=== PATIENT | female | born 1990 ===

== ENCOUNTER 2025-01-23 08:57 | Inpatient (IN) | payer MEDICARE ==
[~2025-01-23] VITALS: Ht 170.2 cm; Wt 116.0 kg
[2025-01-23] MEDS ORDERED: ALBU90OI INH (13:39)
[2025-01-23] MEDS ORDERED: LORazepam 2 MG/ML 1ML Injection IM PRN (13:40)
[2025-01-23] MEDS ORDERED: Ondansetron 4 MG SoluTab MM PRN (13:40)
[2025-01-23] MEDS ORDERED: BREYNA 80-4.510.3 GM INH (13:43)
[2025-01-23] MEDS ORDERED: GABA300 (13:44)
[2025-01-23] MEDS ORDERED: GABA300 PO (13:44)
[2025-01-23] MEDS ORDERED: Aluminum Hydroxide 320MG/5ML 473 ML PO PRN (13:45)
[2025-01-23] MEDS ORDERED: LAMO100 PO (13:45)
[2025-01-23] MEDS ORDERED: Polyethylene Glycol 3350 17 gm PO PRN (13:45)
[2025-01-23] MEDS ORDERED: Ativan1 MG PO ×2 (13:48→13:55)
[2025-01-23] MEDS ORDERED: DiphenhydrAMINE HCl 50 MG/ML 1ML Vial IM PRN (13:50)
[2025-01-23] MEDS ORDERED: FLU VACC TS2025-26(6MOS UP)/PF 45 MCG/0.5 ML SYRINGE IM SCH (13:50)
[2025-01-23] MEDS ORDERED: Haloperidol Lactate Inj. 5 MG/ML Injection IM PRN (13:50)
[2025-01-23] MEDS ORDERED: MIRT30 PO (13:51)
[2025-01-23] MEDS ORDERED: PRAZ2 PO (13:52)
[2025-01-23] MEDS ORDERED: SULTRIDS PO (13:52)
[2025-01-23] MEDS ORDERED: TIZA4 PO (13:53)
[2025-01-23] MEDS ORDERED: Albuterol HFA200 ACT/6.7 GM INH INH PRN (14:15)
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
[2025-01-23 19:16] VITALS: BP 124/79
[2025-01-23] MEDS ORDERED: Trimethoprim/Sulfamethoxazole DS Tab PO SCH (21:00)
--- NOTE | 2025-01-23 21:53 | NUR ---
Ativan 1mg given at 2150 per patient request for med and mild anxiety MASS score 3. Paatient aware she can have no more Ativan until morning
--- NOTE | 2025-01-24 04:51 | NUR ---
Patient is pleasant alert and oriented and active in the milieu. She Did refuse her Bactrim last night at HS. She also requested Ativan 1mg at 2150 as she was unable to sleep due to anxiety for a mass score of 3. Cata was able to sleep until 0500 when she got OOB and asked the time. Austin she got back into bed, she remained awake. Patient does have fleeting thoughts of SI, but without a plan. No HI or AVTH. Will continue close monitoring every 15 minutes for comfort and safety
--- NOTE | 2025-01-24 08:21 | NUR ---
SHIFT ASSESSMENT: PT IS ALERT, ORIENTED AND COOPERATIVE WITH CARE. SHE DENIES SI, HI AND AVH. SHE APPEARS FAIRLY WELL GROOMED AND HAS APPROPRIATE EYE CONTACT. STATES THAT HER MOOD IS, "OK" AND HAS A DEPRESSED AFFECT. SHE STATES THAT SHE DIDN'T SLEEP WELL, WOKE UP EARLY THINKING IT WAS TIME FOR BREAKFAST. PT WAS COMPLIANT WITH AM MEDICATIONS AND BLOOD DRAW. SHE C/O 810 ANXIETY, REQUESTED ATIVAN. PT MEDICATED WITH ATIVAN PRN PER EMAR FOR MASS SCORE OF 3/10. PT MONITORED WITH Q 15 CHECKS FOR SAFETY PER UNIT PROTOCOL.
[2025-01-24 08:48] LABS: CHOL/HDL RATIO 4.2; Cholesterol 133 mg/dL (50-200); HDL Cholesterol 32 mg/dL (>39); LDL/HDL RATIO 2.3; Low Density Lipoprotein Chol 73 mg/dL (0-110); Triglycerides 139 mg/dL (30-140); Very Low Density Lipoprot Chol 27 mg/dL (6-28)
[2025-01-24] MEDS ORDERED: Multivitamins 1 Tab PO SCH (09:00)
[2025-01-24 09:07] VITALS: BP 122/80
[2025-01-24 13:33] LABS: BASOPHILS ABSOLUTE AUTO 0.06 K/mm3 (0.00-0.23); BASOPHILS PERCENT AUTO 1 % (0-2); EOSINOPHILS ABSOLUTE AUTO 0.21 K/mm3 (0.00-0.68); EOSINOPHILS PERCENT AUTO 3 % (0-6); Hematocrit 43.6 % (33.0-51.0); Hemoglobin 15.0 g/dL (11.5-16.0); IMMATURE GRAN ABSOLUTE AUTO 0.03 K/mm3 (0.00-0.10); IMMATURE GRAN PERCENT AUTO 0 % (0-1); LYMPHOCYTES ABSOLUTE AUTO 2.78 K/mm3 (0.84-5.20); LYMPHOCYTES PERCENT AUTO 38 % (21-46); MONOCYTES ABSOLUTE AUTO 0.41 K/mm3 (0.16-1.47); MONOCYTES PERCENT AUTO 6 % (4-13); Mean Corpuscular HGB Conc 34.4 g/dL (31.5-36.5); Mean Corpuscular Volume 95 fL (80-100); NEUTROPHILS ABSOLUTE AUTO 3.89 K/mm3 (1.96-9.15); NEUTROPHILS PERCENT AUTO 53 % (41-73); NRBC ABSOLUTE 0.00 K/mm3 (0.00-0.02); NRBC Auto 0.0 /100 WBC (0.0-0.2); Platelet Count 175 K/mm3 (150-400); RDW Coefficient Variation 11.3 % (11.7-14.2); RDW Standard Deviation 39.0 fL (35.1-46.3)
[2025-01-24 14:10] LABS: Alanine Aminotransfer (ALT/SGP 42.0 U/L (12-78); Albumin, Blood 3.9 g/dL (3.4-5.0); Albumin/Globulin Ratio 1.1 (0.8-1.8); Anion Gap 9.0 mmol/L (3-11); Aspartate Aminotrans (AST/SGOT 20.0 U/L (12-37); Bilirubin, Total 0.4 mg/dL (0.1-1.0); Blood Urea Nitrogen 12.0 mg/dL (8-24); CO2, Blood 26.0 mmol/L (21-32); Calcium, Blood 9.3 mg/dL (8.5-10.1); Chloride, Blood 107.0 mmol/L (98-108); Creatinine, Blood 0.73 mg/dL (0.40-1.00); Globulin, Blood 3.7 g/dL (2.2-4.0); Glucose, Blood 113.0 mg/dL (70-99); Potassium, Blood 3.8 mmol/L (3.5-5.5); Sodium, Blood 138.0 mmol/L (136-145); Total Protein, Blood 7.6 g/dL (6.4-8.2)
--- NOTE | 2025-01-24 17:14 | NUR ---
SHIFT SUMMARY: PT HAS BEEN CALM AND COOPERATIVE WITH CARE. SHE ATTENDED GROUP AND MEALS. SHE SPENT TIME RESTING ON HER BED AND ENGAGED IN UNIT MILIEU. SHE WATCHED TV IN THE DAY ROOM AND VISITED WITH PEERS. SHE WAS MEDICATED NOTED IN THE AM IN SHIFT ASSESSMENT FOR ANXIETY. DR. CHAVEZ FROM THE HOSPITALIST SERVICE ASSESSED PT TODAY AND PT IS AGREEABLE TO CONTINUING HER ORAL ANTIBIOTIC. PT C/O INDIGESTION AND WAS MEDICATED WITH PRN TUMS. MONITORED WITH Q 15 MIN CHECKS FOR SAFETY PER UNIT PROTOCOL.
[2025-01-24 19:14] VITALS: BP 126/74
--- NOTE | 2025-01-24 22:03 | NUR ---
MEDICATION/MASS SCORE: PATIENT REQUESTED PRN ATIVAN 1MG PO BID. MASS SCORE WAS 4. PATIENT WAS TEARFUL AND STATED, "I'M SAD AND DEPRESSED, BUT I DON'T FEEL LIKE HURTING MYSELF." THE MEDICATION WAS EFFECTIVE, PATIENT SAT WITH PEERS AND WAS ABLE TO ENJOY THE TELEVISION PROGRAM, THEN WENT TO BED.
--- NOTE | 2025-01-24 23:41 | NUR ---
MID-SHIFT SUMMARY: PATIENT WAS IN THE DAYROOM WATCHING TELEVISION AT THE BEGINNING OF THE SHIFT. SHE WAS ABLE TO ANSWER BILINGUAL SALES ASSISTANT QUESTIONS IN A LOGICAL AND LINEAR MANNER. SHE DENIED SUICIDAL IDEATION, THOUGHTS OF SELF HARMING AND A/V/T HALLUCINATIONS. SHE PRESENTED TEARFUL AND DEPRESSED. SHE STATED, "I'M FEELING SAD AND DEPRESSED, BUT I DON'T WANT TO HURT MYSELF." SHE HAD C/O "A BURNING SENSATION" IN HER LEFT BIG TOE. SHE STATED, "IT LOOKS WAY BETTER THAN IT DID." SHE STATED THAT SHE HAD AN INFECTION, "AN INGROWN TOENAIL INFECTION", BUT THAT IT "LOOKS WAY BETTER. IT WAS BLACK." THE LEFT SIDE OF THE LEFT BIG TOENAIL PRESENTS SLIGHTLY PINK SURROUNDING THE AREA, WITH NO PUS NOTED. PATIENT WANTED "SOMETHING TO COVER IT." A 2X2 GAUZE WAS PLACED OVER THE SORE AREA, AND THEN TWO BANDAIDS WERE WRAPPED TO HOLD IT IN PLACE. PATIENT STATED THAT SHE WAS "HAPPY WITH THE BANDAID." SHE WANTED TO TAKE OFF HER SOCK, AND WAS ADVISED AGAINST GOING BAREFOOT. SHE STATED, "IT FEELS BETTER WHEN I DON'T HAVE THE SOCK ON." SHE C/O FEELING "SAD AND DEPRESSED". SHE STATED, "WHEN I TRIED TO CALL HOME, NO ONE ANSWERED THE PHONE. IT MADE ME FEEL LIKE THEY DON'T KNOW I EXIST." SHE CONTINUED TO BE TEARFUL SHE SPOKE OF HER FAMILY, AND MISSING THEM. SHE STATED, "I'M GLAD I'M NOT IN THE SAME TOWN I LIVE IN. THAT WAY, I CAN CONCENTRATE ON BEING HERE AND GETTING BETTER." SHE SMILED A BIT SHE SPOKE OF "THE FRIENDLINESS HERE". SHE STATED THAT "STAFF AND MY FRIENDS (PEERS) ARE SO NICE." SHE PARTICIPATED IN SNACK AND WRAP UP GROUP AT 2030 IN THE DINING AREA. SHE WAS COMPLIANT WITH EVENING MEDICATIONS, AND REQUESTED ATIVAN 1MG PO (ALLOWED PRN BID) FOR ONGOING ANXIETY. HER MASS SCORE WAS 4. THE ATIVAN WAS EFFECTIVE, SHE WENT TO BED SHORTLY AFTER AND WAS RESTING, BUT AWAKE. SHE WAS ASKED IF SHE WANTED TO STOP USING STREET DRUGS AND SHE STATED, "YES, I'M DETOXED BY NOW. I WANT TO USE MY PRESCRIPTION MEDICATION AND NOT GO BACK TO METH." SHE CITED "CONCERNS ABOUT MY WELL BEING" THE MAIN REASON TO STOP USING METHAMPHETAMINE. SHE C/O "SCRATCHY THROAT" AND REQUESTED THROAT DROPS. SHE AGREED THAT IT WOULD BE OKAY TO TALK TO THE DOCTOR IN THE MORNING AND TRY TO GET AN ORDER FOR THEM. MEANWHILE, SHE WAS GIVEN A COFFEE SIZED CUP WITH ICE, WHICH SHE STATED WAS EFFECTIVELY RELIEVING FOR THE IRRITATION. SHE THANKED RN FOR CALLING HER "MAR" AND STATED, "MY FULL NAME IS A TRIGGER FOR ME. I DON'T KNOW WHY, BUT IT JUST IS." SHE REMAINED UP FOR A SHORT WHILE AFTER HER MEDICATION, THEN WENT TO HER ROOM, WHERE SHE WAS NOTED TO BE IN BED RESTING WITH EYES CLOSED AND RESPIRATIONS CONFIRMED. CONTINUING TO MONITOR FOR SAFETY WITH Q15 MINUTE CHECKS.
--- NOTE | 2025-01-25 04:23 | NUR ---
END OF SHIFT SUMMARY PATIENT HAS SLEPT SINCE THIS FRAMING MILL SUPERVISOR ASSUMED CARE AT MIDNIGHT. NO PRN MEDICATIONS WERE UTILIZED. PATIENT DOES NOT SEEM TO BE IN ANY ACUTE DISTRESS.
[2025-01-25 08:07] VITALS: BP 134/90
--- NOTE | 2025-01-25 09:46 | NUR ---
SHIFT ASSESSMENT: PT ALERT, ORIENTED AND COOPERATIVE WITH CARE. SHE DENIES SI, HI AND AVH. SHE IS FAIRLY WELL GROOM AND HAS APPROPRIATE EYE CONTACT. SPEAKS QUIETLY, IS ENGAGED AND CALM. STATES THAT SHE SLEPT WELL BUT WOKE UP THINKING SHE WAS AT HOME WHICH MADE HER DEPRESSED WHICH IS CONGRUENT TO HER AFFECT. SHE C/O ANXIETY THAT SHE RATES AT 8/10 AND WAS MEDICATED WITH ATIVAN PRN PER EMAR FOR MASS SCORE OF 3. SHE WAS ALSO MEDICATED WITH IBUPROFEN PRN FOR C/O TOE PAIN AND HEADACHE. PT BEING MONITORED WITH Q 15 MIN CHECKS FOR SAFETY PER UNIT PROTOCOL.
[2025-01-25 15:39] LABS: Source, Urine Clean Catch
[2025-01-25 15:43] LABS: Color, Urine Yellow (P-Yellow); Glucose Qualitative, Urine Neg (Neg); Ketones, Urine Neg (Neg); Leukocyte Esterase, Urine 3+ (Neg); Protein, Urine 2+ (Neg); Specific Gravity, Urine 1.025 (1.003-1.022); Urobilinogen, Urine 1+ (Normal)
[2025-01-25 15:56] LABS: Bilirubin, Urine 1+ (Neg)
[2025-01-25 15:57] LABS: Red Blood Cells, Urine 0-2 /hpf (0-2)
--- NOTE | 2025-01-25 18:05 | NUR ---
SHIFT SUMMARY: PT REMAINED CALM AND COOPERATIVE THROUGHOUT SHIFT. SHE ATTENDED MEALS AND GROUPS. SHE WAS PRESENT ON THE UNIT AND ACTIVE IN THE MILIEU. SHE SPENT TIME IN THE DAY ROOM WATCHING TV AND RESTING IN HER ROOM. SHE SHOWERED IN THE AFTERNOON. PT C/O BURNING WITH URINATIION. URINE SAMPLE COLLECTED, ORDER OBTAINED AND SPECIMEN TAKEN TO LAB.
[2025-01-25 20:19] VITALS: BP 133/81
--- NOTE | 2025-01-25 21:16 | NUR ---
MASS SCORE: PATIENT REQUESTED AND RECEIVED ATIVAN 1 MG PO PRN BID AT 2105 FOR A MASS SCORE OF 4. CONTINUING TO MONITOR FOR EFFECTIVENESS AND SAFETY OF PATIENT.
--- NOTE | 2025-01-25 21:23 | NUR ---
NICOTINE PATCH: PATIENT DID NOT HAVE HER NICOTINE PATCH ON AT MEDICATION ADMINISTRATION TIME. SHE STATED, "IT FELL OFF". SHE STATED THAT IT WENT INTO THE GARBAGE, WHICH HAS SINCE BEEN TAKEN OUT. PATIENT ADVISED TO GIVE PATCH TO ANY STAFF IF IT SHOULD FALL OFF, AND SHE VERBALIZED UNDERSTANDING. CONTINUING TO MONITOR.
--- NOTE | 2025-01-26 04:50 | NUR ---
SHIFT SUMMARY: PATIENT WAS IN THE DAYROOM WATCHING TELEVISION AT THE BEGINNING OF THE SHIFT. SHE CAME UP TO THE NURSING STATION AND STATED THAT HER FEET BECOME TINGLY/NUMB BILATERALLY WHEN SHE HAS BEEN SITTING FOR A TIME. SHE STATED, "THIS HAS HAPPENED BEFORE, BUT NOW IT TAKES LONGER TO GET THAT TINGLY FEELING TO GO AWAY." PATIENT STATED THERE IS NO PAIN INVOLVED AND THAT SHE CAN AMBULATE WITH THE FEELING. WILL REPORT TO [facility] TO FOLLOW UP WITH PATIENT. SHE WENT INTO THE SENSORY ROOM WITH RN TO ENGAGE WITH ASSESSMENT. SHE SAT IN A ROCKING CHAIR FOR A TIME AND WHEN SHE GOT UP, SHE NOTED THAT SHE DID NOT HAVE THE TINGLY FEELING. SHE STATED, "IT MUST BE SOMETHING ABOUT THE WAY I WAS SITTING" (IN THE DAYROOM). SHE WAS ABLE TO ANSWER CHRISTIAN SCIENCE PRACTITIONER QUESTIONS IN A LOGICAL AND LINEAR MANNER. SHE DENIED SUICIDAL IDEATION, THOUGHTS OF SELF HARMING AND A/V/T HALLUCINATIONS. SHE STATED THAT SHE IS NOT SAD OR DEPRESSED TODAY. SHE PRESENTED BLUNTED AND QUIET. SHE STATED, "I DIDN'T TRY TO CALL MY FAMILY. I'M WORRIED THAT THEY ARE MAD AT ME. I'LL PROBABLY TRY TO CALL MY TOMORROW." SHE STATED, "I WANT TO STAY OVER THE WEEKEND. I NEED THE TIME TO GET BETTER." SHE ADDED, "I FEEL LIKE I AM STARTING TO GET BETTER." SHE STATED THAT HER LEFT BIG TOE FEELS BETTER, WITH "MAYBE A 2/10 PAIN". SHE HAD A NICOTINE PATCH PLACE IN THE MORNING, BUT WAS NOT ABLE TO TURN IT IN. SHE STATED, "IT FELL OFF TODAY. IT WAS IN THE GARBAGE AND IT'S GONE." SHE WAS ASKED TO PLEASE HAND IT TO A STAFF IF SHE SEES IT FALL OFF IN THE FUTURE. SHE PARTICIPATED IN SNACK AND WRAP UP GROUP AT 2030 AND WAS COMPLIANT WITH EVENING MEDICATION ADMINISTRATION. SHE REQUESTED AND WAS GIVEN ATIVAN AT 2105 FOR MASS SCORE 4, WHICH WAS EFFECTIVE. SHE WENT BACK TO WATCH SOME TELEVISION AFTER SNACK AND MEDICATION. SHE WAS NOTED TO BE LAUGHING WITH THE GROUP IN THE DAYROOM. SHE WENT TO BED JUST BEFORE 2200, AND WAS NOTED TO BE RESTING QUIETLY WITH EYES CLOSED AND RESPIRATIONS CONFIRMED FOR THE REMAINDER OF THE SHIFT. CONTINUING TO MONITOR FOR SAFETY WITH Q15 MINUTE CHECKS.
[2025-01-26 08:48] VITALS: BP 137/87
[2025-01-26 10:32] LABS: HEPATITIS C ANTIBODY CIA INDEX >11.00 IV
[2025-01-26 12:09] VITALS: BP 130/89
--- NOTE | 2025-01-26 13:06 | NUR ---
ASSUMED PT CARE @0700. SHE IS AA&O TO ALL. SHE REPORTS HER MOOD IS TIRED. SHE STATES THAT SHE IS HAVING DIFFICULTY SLEEPING D/T NIGHTMARES. SHE STATES THIS IS NORMAL FOR HER. AFFECT IS SAD. SHE STATES SHE IS HAVING A HARD TIME BECAUSE SHE MISSES HER HUSBND. SHE REPORTS SHE FEELS SAFE HERE AND DENIES CURRENT SI, BUT STATES THAT SHE DOES NOT TRUST HERSELF IF SHE RETURNS HOME. SHE STATES SHE DOES NOT FEEL READY TO GO HOME AT THIS TIME. SHE REQUESTED PRN 1MG ATIVAN FOR ANXIETY WITH GOOD RESULTS. SHE HAS BEEN UP FOR MEALS AND SHOWER. SHE IS COMPLIANT WITH MEDS AND DENIES ANY ADVERSE EFFECTS. APPETITE IS GOOD. SHE IS INTERACTING APPROPRIATELY WITH STAFF AND PEERS. WILL CONTINUE POC
--- NOTE | 2025-01-26 18:16 | NUR ---
SHIFT SUMMARY NO SIGNIFICANT SANCHEZ FROM ASSUMPTION OF CARE. PT HAS BEEN UP TO GROUPS, MEALS, SHOWERS. SHE HAS BEEN PLEASANT AND COOPERATIVE WITH CARE. PT REPORTED HEARTBURM. TUMS GIVEN WITHOUT GOOD RESULTS. AMPHOGEL GIVEN. WILL CONTINUE POC
[2025-01-26 20:08] VITALS: BP 125/83
[2025-01-26 20:55] LABS: HIV-1 QNT BY NAAT (COPIES/ML) Not Detected cpy/mL; HIV-1 QNT BY NAAT INTERP Not Detected (Not Detected); HIV-1 QNT NAAT (LOG COPIES/ML) Not Detected
--- NOTE | 2025-01-27 05:54 | NUR ---
SHIFT SUMMARY Pt is A&O, calm, cooperative, polite, appropriately dressed and groomed, eye contact is appropriate. Pt stated that her mood was "better, but still sad," affect is congruent with reported mood. Pt denies SI, HI, and hallucinations. Pt endorsed lower back pain 8/10w and requested PRN ibuprofen with HS meds; pain 4 at re-evaluation. Pt reported some anxiety related discomfort and requested PRN olanzapine, which was given at 1906. Pt also requested lorazepam with her HS meds. Pt stated that she is feeling better after talking to her [id number], who checked on her residence. Pt still hasn t made contact with her spouse, but she believes he is spending Halloween with the nieces and nephews. Pt spent most of the evening watching TV with peers. Staff continues to monitor q15m for safety and wellness.
[2025-01-27 08:28] VITALS: BP 134/83
--- NOTE | 2025-01-27 16:23 | NUR ---
PATIENT IS ALERT AND ORIENTATED. SPEECH IS CLEAR. AFFECT IS SAD/FLAT. SHE STATES HER MOOD IS ALRIGHT, ANXIOUS AND TIRED. PATIENT DENIES ANY THOUGHTS OF SUICIDE. DENIES HALLUCINATIONS. PATIENT IS LOOKING AT WEDNESDAY FOR DISCHARGE. SHE HAS MEDICARE, SO HER 48 HOUR MEDICARE FOR WAS COMPLETED THIS SHIFT AND SCANNED. PATIENT SPENT THE DAY WATCHING MOVIES AND VISITING WITH STAFF AND PEERS IN THE GROUP ROOM. SHE HAS DEMONSTRATED SAFE BEHAVIOR.
[2025-01-27 19:03] VITALS: BP 139/84
--- NOTE | 2025-01-27 19:08 | NUR ---
MEDICATED FOR C/O INCREASING ANXIETY. STATES LEVEL IS 8/10. TALKING TO SELF SHE WALKS AWAY, WRINGING HANDS TOGETHER. ZYPREXA GIVEN PER PRN ORDER.
[2025-01-27 20:06] LABS: HCV QNT BY NAAT (IU/ML) Not Detected; HCV QNT BY NAAT (LOG IU/ML) Not Detected; HCV QNT BY NAAT INTERP Not Detected (Not Detected)
--- NOTE | 2025-01-27 22:48 | NUR ---
PT C/O PAINFUL LUMP IN LEFT BREAST BETWEEN 12:00 AND 1:00 IN UPPER OUTER QUADRANT. ALSO STATES SHE HAD A MOLE THAT WAS BOTHERING HER. 2 RN IN TO CHECK MOLE ON LEFT BREAST - NOTED TO BE RED AND IRRATED AROUND EDGES. PT DOES STATE SHE WAS "SCRATCHING AT IT" IT WAS BOTHERING HER. PALPATED AREA OF BREAST WHERE PT IDENTIFIED PAINFUL LUMP. NOTED APPROX 1 CM ROUND NODULE WITH WELL DEFINED EDGES. RECOMMEND FOLLOW UP WITH PRIMARY CARE PROVIDER ONCE DISCHARGED FROM THIS FACILITY TO PURSUE EVALUATION OF LUMP. PT ABLE TO IDENTIFY FACILITIES IN HER HOME AREA THAT MAY BE ABLE TO ASSIST HER IN HAVING AREA EVALUATED.
--- NOTE | 2025-01-28 05:33 | NUR ---
SHIFT SUMMARY Assumed patient care at 0015. Pt is lying on her bed with eyes closed and appears to be asleep. Respirations regular and unlabored, no apparent distress. Staff continues to monitor q15m for safety and wellness.
[2025-01-28 08:33] VITALS: BP 133/86
--- NOTE | 2025-01-28 10:00 | NUR ---
PATIENT SPOKE WITH PROVIDER THIS AM. SHE AND DR. CHILDS DETERMINED HER DISCHARGE DATE TO BE WEDNESDAY, RATHER THAN WEDNESDAY. SHE STATES SHE WOULD LIKE TO BECOME A PATIENT AT [facility] TO [facility], FOR BOTH MEDICAL AND BEHAVIORAL HEALTH. DR. CHAVEZ PLANS TO SEE THE PATIENT TODAY, TO FOLLOW UP ON LABS THAT WERE DRAWN AND TO SIGN OFF ON THE PATIENTS CARE.
[2025-01-28] MEDS ORDERED: Albuterol HFA200 ACT/6.7 GM INH INH PRN (17:10)
--- NOTE | 2025-01-28 17:35 | NUR ---
PATIENT IS ALERT AND ORIENTATED. HER MOOD IS "ALRIGHT" BUT SHE APPEARS DEPRESSED. SHE DOES HAVE SOME ANXIETY. HER DISCHARGE WAS WRITTEN ON THE BOARD FOR wednesday, HOWEVER THE PROVIDER SAW HER THIS AM AND CHANGED IT TO wednesday. SHE HAS FUTURE THINKING SHE IS NAMING PROVIDERS WHOM SHE WASNT TO OBTAIN CARE FROM POST DISCHARGE (SEE PREVIOUS NOTE). SHE DENIES BEING SUICIDAL, HOMICIDAL AND DENIES HAVING HALLUCINATIONS. SHE DID REQUEST AN ABLUTEROL INHALER WHICH SHE USES AT HOME AND THE PROVIDER DID ORDER THIS. THE CONSULT FOR HER SKIN WAS CLOSED OUT TODAY AND THE PROVIDER DR. GALLRADO REVIEWD LABS WITH THE PATIENT WELL. HER TOE WAS REBANDAGED AFTER THE FOLLOW UP WITH DR Gallardo. PATIENT SPENT HER DAY ATTENDING GROUPS, VISITING WITH STAFF AND PEERS IN THE GROUP ROOM. SHE IS COOPERATIVE AND KIND TO EVERYONE AROUND HER. SHE IS CURRENTLY EATING DINNER.
[2025-01-28 19:09] VITALS: BP 127/75
--- NOTE | 2025-01-28 20:51 | NUR ---
PT REQUESTS TO CHANGE ROOMS RELATED TO HER ROOMMATE USING MELINDA MCDONOUGH AND NOW SHE "CAN'T BREATHE". NO NOTED RESPIRATORY DISTRESS. PT STATES "I'M CHOKING." PT HOLDS CONVERSATION WITHOUT DIFFICULTY AND CURRENTLY DRINKING WATER. INSTRUCTED HER THAT WE ARE NOT ABLE TO OFFER HER A NEW ROOM AT THIS TIME.
[2025-01-29 07:38] VITALS: BP 124/84
--- NOTE | 2025-01-29 08:36 | NUR ---
SHIFT ASSESSMENT: PT IS ALERT, ORIENTED AND COOPERATIVE WITH CARE. SHE DENIES SI, HI AND AVH. HER AFFECT IS EUTHYMIC AND SHE HAS GOOD EYE CONTACT. SHE STATES THAT SHE LOOKING FORWARD TO DISCHARGING TOMORROW BUT IS ALSO ANXIOUS. SHE RATES HER ANXIETY AT 8/10 AND REQUESTED ATIVAN. PT WAS MEDICATED PER EMAR WITH PRN ATIVAN FOR MASS SCORE OF 3. PT STATES THAT HER MOOD IS "OK" AND THAT SHE HAD A DREAM ABOUT HER MOTHER IN [place] LAST NIGHT. SHE HAS BEEN UP FOR BREAKFAST AND ACTIVE IN THE MILIEU THIS AM. PT MONITORED WITH Q 15 MIN CHECKS FOR SAFETY PER UNIT PROTOCOL.
[2025-01-29 10:45] LABS: HEPATITIS C AB CIA INTERP High Pos
--- NOTE | 2025-01-29 15:47 | NUR ---
PT SPOKE WITH JOIE RN REGARDING DISCHARGE PLAN. PT POSSIBLY NOT ABLE TO RETURN TO PREVIOUS LIVING SITUATION. PT HAS REQUESTED ASSISTANCE TO GET INTO A TREATMENT CENTER AND JOIE IS WORKING ON THIS WITH HER. PT BECAME TEARFUL AFTER ATTEMPTING TO CALL HER . STATES THAT WHEN SHE CAN'T GET A HOLD OF HIM IT MAKES HER "FEEL ALONE AND SUICIDIAL". STATES THAT SHE IS SAFE WHILE IN THE UNIT AND REQUESTED ASSISTANCE WITH 10/10 ANXIETY. PT NOTED TO BE TEARFUL, APPEARS ANXIOUS, TALKING FASTER THAN NORMAL AND RESTLESS. PT MEDICATED WITH PRN ZYPREXA PER EMAR FOR MASS SCORE OF 7.
--- NOTE | 2025-01-29 17:54 | NUR ---
SHIFT SUMMARY: PT REMAINED CALM AND COOPERATIVE THROUGHOUT SHIFT. SHE WAS PRESENT ON THE UNIT, ATTENDED MEALS AND GROUPS. SHE WAS ACTIVE IN THE MILIEU, TALKING WITH PEERS AND STAFF AND SPENT TIME IN THE DAY ROOM WATCHING TV. PT MONITORED WITH Q 15 MIN CHECKS FOR SAFETY PER UNIT PROTOCOL.
[2025-01-29 20:12] VITALS: BP 120/80
--- NOTE | 2025-01-30 05:08 | NUR ---
SHIFT SUMMARY Pt is A&O, calm, cooperative, polite, appropriately dressed, eye contact is appropriate. Pt stated that her mood is "irritable, anxious, a little sad," affect is constricted. Pt denies SI, HI, and hallucinations. Pt denies current pain. Pt asked for PRN Tums for indigestion and received that at 2004. Pt stated that her took her name of of their HUD paperwork, telling HUD that she no longer lives in their apartment. Pt stated that her plan is to leave here after discharge and get admitted to a rehab facility in [place] and hopefully learns some more cooping skills for interacting with her and mother. Pt stated that her oldest daughter is with her sister and her younger daughter is with her mother in [place]. RN checked pt s dressing on her left, great toe, dressing is CDI. Pt spent the evening watching TV with peers and staff. Staff continues to monitor q15m for safety and wellness.
[2025-01-30 08:27] VITALS: BP 136/93
--- NOTE | 2025-01-30 18:03 | NUR ---
SHIFT SUMMARY PT AA&O TO ALL. SHE IS PLEASANT AND COOPERATIVE WITH CARE. SPEECH AND EYE CONTACT ARE APPROPRIATE. PT IS COMPLIANT WITH MEDICATIONS AND DENIES ANY ADVERSE EFFECTS. SHE FELLS THEY ARE EFFECTIVE. SHE DENIES SI, AVH. PT WORKING WITH [facility] PERSONNEL DIRECTOR IN ATTEMPT TO FING SNF OR DRUG REHAB FOR SAFE DISCHARGE. SHE HAS BEEN UP FOR MEALS, SHOWER AND GROUPS. SHE IS INTERACTING WELL WITH PEERS AND STAFF. WILL CONTINUE POC
[2025-01-30 19:06] VITALS: BP 141/88
--- NOTE | 2025-01-30 21:17 | NUR ---
MASS SCORE: PATIENT REQUESTED AND WAS GIVEN ATIVAN 1MG PO PRN BID AT 2055, FOR A MASS SCORE OF 4. CONTINUING TO MONITOR FOR EFFECTIVENESS AND SAFETY WITH Q15 MINUTE CHECKS.
--- NOTE | 2025-01-30 21:25 | NUR ---
BANDAGE CHANGE: PATIENT HAS BANDAID TO LEFT GREAT TOE. IT IS INFECTED AND SHE CONTINUES TO TAKE BACTRIM PO FOR THE INFECTION. THE BANDAID WAS REMOVED. TOE IS WARM TO TOUCH ON THE TOP, AND IS PINK ALL OVER THE TOP AND LEFT SIDE. PATIENT STATES IT HURTS TO THE TOUCH. BACITRACIN PLACED ON AREA OF WOUND AND OVER THE TOP OF THE TOE. TWO PIECES OF 2" X 2" GAUZE THEN PLACED, EMPHASIZING LEFT SIDE AND TOP OF TOE. TWO BANDAIDS THEN USED TO HOLD GAUZE IN PLACE AND ADD MORE PADDING. PATIENT STATES THAT "DURING THE NIGHT, IT HURTS WHEN I BUMP ANYTHING". CONTINUING TO MONITOR FOR PAIN AND FOR SAFETY WITH Q15 MINUTE CHECKS.
--- NOTE | 2025-01-31 04:31 | NUR ---
SHIFT SUMMARY: PATIENT WAS IN THE DAYROOM WATCHING TELEVISION WITH STAFF AND PEERS AT THE BEGINNING OF THE SHIFT. SHE CAME OUT TO TALK WITH RN, AND AGREED TO GO INTO SENSORY ROOM. SHE STATED THAT SHE HAD "A LOT OF EMOTIONS" AND "EVERYTHING IS HAPPENING AT ONCE". SHE STATED THAT HER TOOK HER NAME [facility]. SHE TALKED ABOUT HER LONG RELATIONSHIP WITH HIM, AND HOW THEY HAVE TAKEN BREAKS IN THE PAST. SHE STATED THAT HE HAS "CHEATED" IN THE PAST, BUT THIS TIME SHE FOUND OUT "HE'S BEEN CHEATING FOR A YEAR", AND THAT, COUPLED WITH THE FACT THAT SHE WANTS "TO STOP USING METH AND GET TREATMENT, AND HE DOESN'T. IT'S REALLY HARD TO QUIT WHEN YOUR PARTNER IS DOING IT", MAKES HER THINK "THE RELATIONSHIP IS REALLY OVER". SHE STATED, "IT'S HARD TO PROCESS. I'M USING THE RADICAL ACCEPTANCE I LEARNED IN GROUP." SHE WAS ABLE TO ANSWER EMPLOYEE BENEFITS DIRECTOR QUESTIONS IN A LOGICAL AND LINEAR MANNER. SHE DENIED SUICIDAL IDEATION, THOUGHTS OF SELF HARMING AND A/V/T HALLUCINATIONS. SHE PARTICIPATED IN SNACK AND WRAP UP GROUP, AND WAS COMPLIANT WITH EVENING MEDICATION ADMINISTRATION. SHE REQUESTED AND WAS GIVEN ATIVAN 1 MG PO BID PRN AND HAD A MASS SCORE OF 4, MILD AGITATION. THE MEDICATION WAS EFFECTIVE. SHE WAS UPSET WHEN A PEER "TRIGGERED" HER. AN AD CAME ON THE TELEVISION ABOUT ALCOHOL AND SHE WANTED IT OFF BECAUSE IT WAS CAUSING HER TO FEEL BAD. A PEER MENTIONED THAT SHE WAS "REALLY SENSITIVE" ABOUT HER TRIGGERS. SHE STATED, "THAT HURT MY FEELINGS AND GOT ME UPSET." SHE WAS ABLE TO CALM SELF AFTER A TIME AND GO BACK TO WATCH MORE TELEVISION. SHE WAS OFFERED BACITRACIN OINTMENT FOR HER INGROWN LEFT LARGE TOENAIL INFECTION, WHICH SHE ACCEPTED. THE AREA IS PAINFUL TO TOUCH AND IS PINK OVER THE TOP AND LEFT SIDE OF THE TOE, AND WAS WARM TO THE TOUCH. GAUZE WAS TAPED ONTO THE AREA TO PROTECT IT DURING THE NIGHT, SHE STATED, "IT HURTS WHEN I'M SLEEPING IF IT BUMPS ANYTHING." SHE WENT TO BED SHORTLY AFTER THAT TIME, AND WAS NOTED TO BE RESTING QUIETLY WITH EYES CLOSED AND RESPIRATIONS CONFIRMED FOR THE REMAINDER OF THE SHIFT. CONTINUING TO MONITOR FOR SAFETY WITH Q15 MINUTE CHECKS.
[2025-01-31] MEDS ORDERED: Trimethoprim/Sulfamethoxazole DS Tab PO SCH (11:10)
--- NOTE | 2025-01-31 15:59 | NUR ---
PRN MEDICATION ADMINISTRATION PT C/O INCREASED ANXIETY RELATED TO LEARNING THAT HER TOOK HER OFF HUD HOUSING. MASS SCORE COMPLETED *SEE MASS DOCUMENTATION. ATIVAN ADMINISTERED AT O902. PT REPORTS THAT THE ATIVAN WORKED WELL FOR HER.
--- NOTE | 2025-01-31 16:07 | NUR ---
SHIFT SUMMARY PT A/O X4; PLEASANT AND COOPERATIVE WITH CARE. SHE DENIES SI, HI, AVTH. PT DID REPORT ANXIETY THIS AM RELATED TO HER HOUSING. PT MEDICATED PER EMR FOR ANXIETY, PLEASE SEE PREVIOUS NOTE. PT'S AFFECT CONGRUENT TO STATED MOOD. PT'S R GREAT TOE VISUALIZED. TOE IS RED AND TENDER TO THE TOUCH. THE SKIN IS SOFT AND THERE IS A FOUL ODOR. REPORTED FINDINGS TO HOSPITALIST AND ANTIBIOTICS EXTENDED. SHE ATTENDED ALL GROUPS AND MEALS THIS SHIFT.
[2025-01-31 19:06] VITALS: BP 124/83
--- NOTE | 2025-01-31 21:45 | NUR ---
BANDAGE CHANGE: PATIENT LEFT GREAT TOE DARK PINK TO TOP AND LEFT SIDE, TENDER AND PAINFUL TO TOUCH. BANDAGE REMOVED, WOUND SPRAY APPLIED AND PATTED DRY WITH STERILE GAUZE. TWO 2" X 2" STERILE GAUZE APPLIED OVER LEFT SIDE AND TOP OF TOP AFTER APPLICATION OF BACITRACIN. GAUZE HELD IN PLACE WITH PAPER TAPE, AND TWO BANDAIDS APPLIED TO ANCHOR AND ADD PADDING FOR PROTECTION. PATIENT ALSO TOOK IBUPROFEN FOR 10/10 PAIN TO GREAT LEFT TOE, WHICH WAS EFFECTIVE.
--- NOTE | 2025-02-01 04:41 | NUR ---
SHIFT SUMMARY: PATIENT WAS IN THE DAYROOM, PLAYING A GAME WITH STAFF AND PEERS, AT THE BEGINNING OF THE SHIFT. SHE CAME OUT TO SPEAK WITH RN. SHE STATED, "I'VE HAD A REALLY GOOD DAY. I'M ENJOYING MYSELF A LOT, AND LEARNING SO MUCH FROM GROUPS." SHE SIGNED THE MEDICARE DISCHARGE FORM AT 1936. SHE PRESENTED UPBEAT AND PLEASANT. SHE WAS ABLE TO ANSWER SERVICE DIRECTOR QUESTIONS IN A LOGICAL AND LINEAR MANNER. SHE DENIED SUICIDAL IDEATION, THOUGHTS OF SELF HARMING AND A/V/T HALLUCINATIONS. SHE STATED, "I'M COMPLETELY DETOXED OFF OF METH NOW, AND I NEVER WANT TO USE IT AGAIN." SHE STATED, "I HAVE A GREAT SUPPORT GROUP. I HAVE MY SISTER AND MY DAUGHTER, AND SOME OF MY NEW FRIENDS HERE." SHE PARTICIPATED IN SNACK AND WRAP UP GROUP AT 1999 IN THE DINING AREA, AND WAS COMPLIANT WITH EVENING MEDICATION ADMINISTRATION. SHE REQUESTED AND WAS GIVEN HER INHALER TO USE, WHICH WAS THEN PLACED BACK IN HER BIN. SHE REQUESTED ATIVAN 1 MG PO BID PRN FOR MASS SCORE 4, AND IT WAS GIVEN WITH GOOD EFFECT. SHE THEN HAD HER BANDAGE CHANGED ON HER LEFT BIG TOE, PLEASE SEE PRIOR NOTE. SHE TOLERATED IT WELL. SHE C/O 10/10 LEFT BIG TOE PAIN, AND WAS GIVEN ADVIL 600 MG PO PRN, WHICH WAS EFFECTIVE. SHE WENT BACK TO WATCH TELEVISION WITH HER PEERS AND STAFF, AND THEN WENT TO BED, WHERE SHE WAS NOTED TO BE RESTING QUIETLY WITH EYES CLOSED AND RESPIRATIONS CONFIRMED. SHE WAS UP X1 AT 0440, ASKING FOR A BLANKET, SHE WAS COLD. A SECOND BLANKET WAS GIVEN TO HER. SHE HAD NO MORE COMPLAINTS. CONTINUING TO MONITOR FOR SAFETY WITH Q15 MINUTE CHECKS.
[2025-02-01 06:57] VITALS: BP 124/105
[2025-02-01 11:20] LABS: Source, Urine Clean Catch
[2025-02-01 11:26] LABS: Bilirubin, Urine Neg (Neg); Color, Urine Yellow (P-Yellow); Glucose Qualitative, Urine Neg (Neg); Ketones, Urine Neg (Neg); Leukocyte Esterase, Urine 3+ (Neg); Protein, Urine 2+ (Neg); Specific Gravity, Urine 1.025 (1.003-1.022); Urobilinogen, Urine NORM (Normal)
[2025-02-01 11:37] LABS: Red Blood Cells, Urine 0-2 /hpf (0-2)
[2025-02-01 13:14] LABS: Albumin, Blood 4.1 g/dL (3.4-5.0); Anion Gap 9 mmol/L (3-11); Blood Urea Nitrogen 17 mg/dL (8-24); CO2, Blood 26 mmol/L (21-32); Calcium, Blood 8.8 mg/dL (8.5-10.1); Chloride, Blood 105 mmol/L (98-108); Creatinine, Blood 0.81 mg/dL (0.40-1.00); Glucose, Blood 89 mg/dL (70-99); Phosphorus, Blood 3.5 mg/dL (2.5-4.9); Potassium, Blood 3.8 mmol/L (3.5-5.5); Sodium, Blood 136 mmol/L (136-145)
--- NOTE | 2025-02-01 17:41 | NUR ---
SHIFT SUMMARY PT DENIES SI, HI, AVTH. "EXCITED" ABOUT DISCHARGE TOMORROW AND IS GOAL ORIENTED. PT EARLIER C/O OF DYSURIA AND FLANK PAIN, DR EVANS AND SHORT AWARE W/ RENAL PANEL/UA ORDERED. PT ALSO CAME UP TO C/O OF ANXIETY AND WAS ABLE TO DEESCALATE AFTER LISTENING TO MUSIC AND THERAPEUTIC COMMUNICATION W/ THIS RN. IS NOW EATING DINNER. ATTENDED GROUPS, MEALS. NO OTHER ACUTE EVENTS TODAY.
[2025-02-01 18:57] VITALS: BP 127/77
--- NOTE | 2025-02-01 21:53 | NUR ---
MASS SCORE: PATIENT REQUESTED ATIVAN 1 MG PO BID PRN, NO MASS SCORE NEEDED. PATIENT HAD MASS SCORE OF 4. MEDICATION WAS EFFECTIVE FOR ANXIETY.
--- NOTE | 2025-02-01 21:55 | NUR ---
BANDAGE CHANGE/WOUND UPDATE: PATIENT TOOK ADVIL FOR 8/10 GREAT TOE PAIN BEFORE BANDAGE CHANGE. TOP AND LEFT SIDE OF LEFT GREAT TOE ANGRY PINK WITH SOME DRAINAGE. PATIENT C/O PAIN TO THE AREA UPON TOUCH. REMOVED OLD BANDAGE, USED WOUND SPRAY TO CLEAN, PATTED DRY WITH STERILE GAUZE. APPLIED BETADYNE TO AREA, LET DRY. APPLIED BACITRACIN TO AREA, COVERED WITH TWO 2" X 2" GAUZE, HELD IN PLACE WITH TWO BANDAIDS, TO ALSO PROVIDE EXTRA PADDING. WRAPPED WITH PAPER TAPE FOR SAFETY AND TO COVER AREA. PATIENT TOLERATED WELL. EDUCATED ON IMPORTANCE OF COMPLETING ANTIBIOTIC REGIMEN. PATIENT VERBALIZED UNDERSTANDING.
--- NOTE | 2025-02-02 05:02 | NUR ---
SHIFT SUMMARY: PATIENT WAS IN THE [place] DOING A PUZZLE AND TALKING WITH STAFF AND PEERS AT THE BEGINNING OF THE SHIFT. SHE PRESENTED ANXIOUS AND SLIGHTLY MANIC. SHE REQUESTED AND WAS GIVEN AMPHOJEL AT 1940, STATING, "I HAD PIZZA FOR DINNER" HER REASON. SHE STATED THAT IT WAS EFFECTIVE FOR HER HEARTBURN. SHE WAS ABLE TO ANSWER CUSTOMER SUPPORT REPRESENTATIVE QUESTIONS IN A LOGICAL AND LINEAR MANNER. SHE DENIED SUICIDAL IDEATION, THOUGHTS OF SELF HARMING AND A/V/T HALLUCINATIONS. SHE STATED, "I SLEEP WELL, BUT I WAKE UP TOO EARLY". SHE HAD SOME C/O PAIN TO HER LEFT GREAT TOE. SHE WOULD LIKE RX FOR PRAZOCIN AND GABAPENTIN UPON LEAVING THE UNIT TO DISCHARGE. SHE PARTICIPATED IN [facility] AND [facility] UP GROUP IN THE DINING AREA AT 1999, AND WAS COMPLIANT WITH EVENING MEDICATIONS. SHE REQUESTED AND WAS GIVEN HER ALBUTEROL INHALER. SHE REQUESTED AND WAS GIVEN ATIVAN 1 MG PO BID PRN, MASS SCORE 4, AT 2133. SHE WAS GIVEN ADVIL 600MG PO FOR 8/10 LEFT GREAT TOE PAIN, WHICH WAS MOSTLY EFFECTIVE. TOE BANDAGES WERE CHANGED AT 2144, PLEASE SEE PRIOR NOTE REGARDING THIS. SHE WENT TO BED SHORTLY AFTER AND WAS NOTED TO BE RESTING QUIETLY WITH EYES CLOSED AND RESPIRATIONS CONFIRMED FOR THE REMAINDER OF THE SHIFT. SHE WAS UP X1 AT 0450, COMPLAINING OF LEFT GREAT TOE PAIN 8/10. SHE REQUESTED AND WAS GIVEN AN ADVIL 600 MG PO. CONTINUING TO MONITOR FOR EFFECTIVENESS. ALSO CONTINUING TO MONITOR FOR SAFETY WITH Q15 MINUTE CHECKS.
[2025-02-02 07:01] VITALS: BP 125/80
--- NOTE | 2025-02-02 08:53 | NUR ---
IMPORTANT DISCHARGE INFORMATION PATIENT TO BE DISCHARGED TODAY. SHE WILL BE GOING TO [facility] IN [place]. [facility] WILL BE PICKING HER UP AROUND 2 OR ACCORDING TO AVAILABILITY. FOLLOW UP WITH [facility] ON 02/14/25 AT 2PM. [place] [facility] [place] [facility] FAX NUMBER
--- NOTE | 2025-02-02 09:52 | NUR ---
SHIFT ASSESSMENT: PT ALERT, ORIENTED AND COOPERATIVE WITH CARE. SHE IS COMPLIANT WITH MEDCIATIONS AND HAS APPROPRIATE EYE CONTACT. STATES THAT HER MOOD IS ANXIOUS AND HAS A CONSTRICTED AFFECT. PT REQUESTED PRN ATIVAN FOR 910 ANXIETY THIS AM AND WAS MEDICATED PER EMAR FOR MASS SCORE OF 3/10. SHE SHOWERED, ATTENDED BREAKFAST AND AM GROUP.
--- NOTE | 2025-02-02 13:29 | NUR ---
DISCHARGE NOTE: PT CALM AND COOPERATIVE. SHE DENIED SI, HI AND AVH. PROVIDED PT WITH DISCHARGE INSRUCTIONS AND SHE DENIED QUESTIONS. PT BELONGINGS RETURNED BY JAGRUTI LEE. PT AMBULATED OUT U WITHOUT DIFFICULTY, BELONGINGS AND DISCHARGE INSTRUCTIONS IN HAND.
== END 2025-02-02 13:27 | disposition home or self-care (01) | DRG 885 ==
LOC: BHU 08:57
PROVIDERS: Psychiatry & Neurology Psychiatry; Student in an Organized Health Care Education/Training Program; ADMIT Psychiatry & Neurology Psychiatry
DX: F33.9 Major depressive disorder, recurrent, unspecified (principal); R45.851 Suicidal ideations; F43.12 Post-traumatic stress disorder, chronic; F15.10 Other stimulant abuse, uncomplicated; L60.0 Ingrowing nail; B18.2 Chronic viral hepatitis C; F41.9 Anxiety disorder, unspecified; M79.7 Fibromyalgia; F17.290 Nicotine dependence, other tobacco product, uncomplicated; E66.9 Obesity, unspecified; R82.71 Bacteriuria; F10.10 Alcohol abuse, uncomplicated; F12.10 Cannabis abuse, uncomplicated; F81.9 Developmental disorder of scholastic skills, unspecified; F88 Other disorders of psychological development; Z23 Encounter for immunization; Z88.8 Allergy status to other drugs, medicaments and biological substances; Z88.5 Allergy status to narcotic agent; Z88.7 Allergy status to serum and vaccine; Z91.040 Latex allergy status; Z88.0 Allergy status to penicillin; Z88.1 Allergy status to other antibiotic agents; Z90.49 Acquired absence of other specified parts of digestive tract; Z90.89 Acquired absence of other organs; Z98.51 Tubal ligation status; Z98.890 Other specified postprocedural states; Z91.018 Allergy to other foods; Z79.51 Long term (current) use of inhaled steroids; Z79.899 Other long term (current) drug therapy; Z87.19 Personal history of other diseases of the digestive system
CPT/HCPCS: 36415; 80053; 80061; 80069; 81001; 83036; 85025; 86803; 87086; 87522; 87536; 96372; A9270